=== PATIENT | male | born 1995 | race Caucasian/White ===

== ENCOUNTER 2021-06-01 07:34 | Emergency (ER) | payer MEDICAID ==
[~2021-06-01] VITALS: Ht 167.6 cm; Wt 91.0 kg
[2021-06-01 07:42] VITALS: BP 103/75
[2021-06-01] MEDS ORDERED: VALACYCLOVIR HCL 500MG TABLET PO ONE (08:00)
[2021-06-01] MEDS ORDERED: CEFTRIAXONE SODIUM 1 G/VIAL IM ONE (08:15)
[2021-06-01] MEDS ORDERED: DOXYCYCLINE HYCLATE 100MG CAPSULE PO ONE (08:15)
[2021-06-01 09:09] LABS: CLARITY URINE CLEAR (CLEAR); COLOR URINE YELLOW (YELLOW); KETONES URINE TRACE (NEGATIVE); LEUKOCYTE ESTERASE URINE 1+ (NEGATIVE); NITRITE URINE NEGATIVE (NEGATIVE); OCCULT BLOOD URINE NEGATIVE (NEGATIVE); PROTEIN URINE TRACE (NEGATIVE); SPECIFIC GRAVITY URINE 1.034 (1.005-1.030)
[2021-06-01] MEDS ORDERED: VALA100044 PO (09:20)
[2021-06-01] MEDS ORDERED: DOXY150T9 PO (09:20)
[2021-06-03 17:06] LABS: NEISSERIA GONORRHOEAE NAA Negative (Negative)
== END 2021-06-01 09:41 | disposition home or self-care (01) ==
LOC: ER 07:34
DX: A60.01 Herpesviral infection of penis (principal); M54.59 Other low back pain
CPT/HCPCS: 81003; 87491; 87591; 96372; 99283; J0696